=== PATIENT | male | born 1965 | race African-American/Black ===

== ENCOUNTER 2020-11-14 10:13 | Emergency (ER) | payer OTHER ==
[2020-11-22 11:03] LABS: POTASSIUM 3.8 mmol/L (3.6-5.2); SODIUM 142 mmol/L (136-145)
[2020-11-22 11:06] LABS: PLATELET COUNT 171 K/uL (142-355)
[2020-11-22 11:07] LABS: PARTIAL THROMBOPLASTIN TIME 22.5 SECONDS (24.5-33.6)
== END 2020-11-14 12:05 | disposition short-term general hospital (02) ==
LOC: ED 10:13
PROVIDERS: Emergency Medicine Emergency Medical Services
DX: I63.9 Cerebral infarction, unspecified (principal); W18.39XA Other fall on same level, initial encounter; Y92.89 Other specified places as the place of occurrence of the external cause
CPT/HCPCS: 36415; 80053; 82550; 82553; 84484; 85027; 85610; 85730; 93005; 96360; 96361; 99285